=== PATIENT | female | born 1995 | race Caucasian/White ===

== ENCOUNTER 2016-06-17 14:00 | Emergency (ER) | payer OTHER ==
[~2016-06-17] VITALS: Ht 154.9 cm; Wt 85.0 kg
[2016-06-17 16:07] LABS: HEMATOCRIT 40.8 % (37.0-47.0); HEMOGLOBIN 13.5 g/dl (12.0-16.0); IMMATURE GRANULOCYTES 0.3 % (0.0-1.0); MEAN CELL VOLUME 86.6 fL CALC (80.0-100.0); MEAN CORPUSCULAR HGB 28.7 pG CALC (26.0-32.0); MEAN CORPUSCULAR HGB CONC 33.1 g/L CALC (32.0-36.0); NEUT# 10.52 thou/uL (2.00-7.15); RED BLOOD COUNT 4.71 mill/uL (4.20-5.60); RED CELL DISTRI WIDTH 12.7 % (11.5-15.5)
[2016-06-17 16:16] LABS: URINE BILIRUBIN - DIPSTICK NEGATIVE (NEGATIVE); URINE BLOOD DIPSTICK NEGATIVE (NEGATIVE); URINE CLARITY CLOUDY; URINE COLOR YELLOW; URINE GLUCOSE - DIPSTICK NEGATIVE (NEGATIVE); URINE KETONE NEGATIVE (NEGATIVE); URINE LEUK ESTERASE NEGATIVE (NEGATIVE); URINE NITRITE - DIPSTICK NEGATIVE (Negative); URINE PROTEIN - DIPSTICK NEGATIVE (NEG-TRACE); URINE SPECIFIC GRAVITY 1.025; URINE UROBILINOGEN - DIPSTICK 0.2 E.U./dL (0.2)
[2016-06-17 16:24] LABS: ALBUMIN 4.3 g/dL (3.2-5.0); ALKALINE PHOSPHATASE 74 u/l (38-126); AMYLASE 100 u/l (30-110); ANION GAP 15 (6-22 (CALC)); BILIRUBIN, TOTAL 0.3 mg/dL (0.0-1.4); BUN 12 mg/dL (7-17); BUN/CREATININE RATIO 17 (12-20 (CALC)); CALCIUM 9.7 mg/dL (8.4-10.2); CARBON DIOXIDE 24 mmol/l (22-30); CHLORIDE 104 mmol/l (95-108); CREATININE 0.7 mg/dL (0.5-1.0); GFR > 60 ML/MIN (>=60 (CALC)); GFR FOR AFR.AMER. > 60 ML/MIN (>=60 (CALC)); GLUCOSE 81 mg/dL (65-105); LIPASE 443 u/l (23-300); POTASSIUM 4.5 mmol/l (3.5-5.1); SGOT/AST 16 u/l (14-36); SGPT/ALT 24 u/l (9-52); SODIUM 139 mmol/l (137-146); TOTAL PROTEIN 7.6 g/dL (6.3-8.2)
[2016-06-17] MEDS ORDERED: PROTONIX40 MG PO (18:42)
[2016-06-17 18:45] VITALS: BP 130/76
== END 2016-06-17 18:47 | disposition home or self-care (01) | DRG 392 ==
LOC: ED 14:00
PROVIDERS: Emergency Medicine
DX: R10.12 Left upper quadrant pain (principal); R11.0 Nausea; R10.30 Lower abdominal pain, unspecified; R74.8 Abnormal levels of other serum enzymes
CPT/HCPCS: Q9967

== ENCOUNTER 2016-08-29 13:01 | Day surgery (SDC) | payer OTHER ==
[~2016-08-29] VITALS: Ht 154.9 cm; Wt 87.1 kg
[~2016-08-29 13:01] MED LIST: NEXPLANON68 MG SC; PROTONIX40 MG PO
[2016-08-29 15:10] VITALS: BP 112/58
== END 2016-08-29 15:10 | disposition home or self-care (01) | DRG 392 ==
LOC: ENDO 13:01 → ORM 17:00 → ENDO 17:15 → ORM 18:45 → ENDO 18:45
PROVIDERS: ATTEND Internal Medicine Gastroenterology
PROC: 0DB98ZX Excision of Duodenum, Via Natural or Artificial Opening Endoscopic, Diagnostic (ICD-10-PCS; principal; 2016-08-29)
PROC: 0DB78ZX Excision of Stomach, Pylorus, Via Natural or Artificial Opening Endoscopic, Diagnostic (ICD-10-PCS; 2016-08-29)
DX: K21.9 Gastro-esophageal reflux disease without esophagitis (principal); K29.50 Unspecified chronic gastritis without bleeding; R11.0 Nausea; R14.0 Abdominal distension (gaseous); R10.13 Epigastric pain; R10.33 Periumbilical pain; R74.8 Abnormal levels of other serum enzymes; Q40.8 Other specified congenital malformations of upper alimentary tract; K29.80 Duodenitis without bleeding

== ENCOUNTER 2018-07-05 12:23 | Emergency (ER) | payer SELFPAY ==
[~2018-07-05] VITALS: Ht 154.9 cm; Wt 87.2 kg
[2018-07-05 14:19] VITALS: BP 119/73
== END 2018-07-05 14:26 | disposition home or self-care (01) | DRG 563 ==
LOC: ED 12:23
DX: S93.401A Sprain of unspecified ligament of right ankle, initial encounter (principal); F17.210 Nicotine dependence, cigarettes, uncomplicated; X50.0XXA Overexertion from strenuous movement or load, initial encounter; Y93.89 Activity, other specified; Y92.830 Public park as the place of occurrence of the external cause